=== PATIENT | male | born 1990 | race Caucasian/White ===

== ENCOUNTER 2018-01-12 03:06 | Emergency (ER) | payer BC, OTHER ==
[2018-01-12 04:35] VITALS: BP 135/77
--- NOTE | 2018-01-12 04:37 | ED ---
Romario Duque Rebecca, scribed for Alex Rodney MD on 01/12/18 at 0328 . Upper Extremity Pain - HPI Summary HPI Summary: Pt is a 27 y/o M who presents to ED c/o right shoulder and arm pain. While at work this morning, at approximately 0230, the pt felt his right shoulder "pop out then back in." Pain is located in the right shoulder and down the RUE. Took Advil at 0230 this morning. On triage, pain was moderate, ranked 7/10. Sx aggravated by movement, alleviated by nothing. Prior similar episode while in high school. 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 - History of Current Complaint Chief Complaint: EDShoulderClavicleInj Stated Complaint: RT SHOULDER INJURY Time Seen by Provider: 01/12/18 03:25 Hx Obtained From: Patient Onset/Duration: Started Hours Ago - ~1 hour, Still Present Severity Currently: Moderate - 7/10 Pain Location: Shoulder - Right, Arm - Right Aggravating Factor(s): Movement Alleviating Factor(s): Nothing Associated Signs & Symptoms: Positive: Negative Related History: Dominant Hand Right - Allergies/Home Medications Allergies/Adverse Reactions: Allergies Allergy/AdvReac Type Severity Reaction Status Date / Time No Known Allergies Allergy Verified 01/12/18 03:12 PMH/Surg Hx/FS Hx/Imm Hx Endocrine/Hematology History: Denies: Hx Diabetes, Hx Thyroid Disease Cardiovascular History: Denies: Hx Hypertension Respiratory History: Denies: Hx Asthma, Hx Chronic Obstructive Pulmonary Disease (COPD) GI History: Denies: Hx Ulcer - Surgical History Surgery Procedure, Year, and Place: HERNIA REPAIR. LEFT KNEE ARTHROSCOPY Infectious Disease History: No Infectious Disease History: Denies: Hx Hepatitis, Hx Human Immunodeficiency Virus (HIV), Hx of Known/ Suspected MRSA, Hx Shingles, Hx Tuberculosis, History Other Infectious Disease, Traveled Outside the [place] in Last 30 Days - Family History Known Family History: Positive: Cardiac Disease - Social History Alcohol Use: None Alcohol Amount: NONE SINCE AUGUST 2013 Substance Use Type: Reports: None Smoking Status (MU): Former Smoker Type: Smokeless Tobacco Amount Used/How Often: 1 TIN A WEEK Have You Smoked in the Last Year: No Review of Systems Negative: Fever Positive: Other - R shoulder and RUE pain All Other Systems Reviewed And Are Negative: Yes Physical Exam - Summary Physical Exam Summary: Appearance: Well appearing, no pain distress Skin: warm, dry, reflects adequate perfusion Head/face: normal Eyes: EOMI, SYDNIE ENT: normal Neck: supple, non-tender Respiratory: CTA, breath sounds present Cardiovascular: RRR, pulses symmetrical Musculoskeletal: strength/ROM intact, including FROM and intact sensation of the R shoulder, little subluxations anteriorly with movement Neuro: normal, sensory motor intact, A&Ox3 Triage Information Reviewed: Yes Vital Signs On Initial Exam: Initial Vitals Temp Pulse Resp BP Pulse Ox 98.2 F 77 16 138/73 100 01/12/18 03:10 01/12/18 03:10 01/12/18 03:10 01/12/18 03:10 01/12/18 03:10 Vital Signs Reviewed: Yes Diagnostics - Vital Signs Vital Signs Temp Pulse Resp BP Pulse Ox 01/12/18 03:10 98.2 F 77 16 138/73 100 - Laboratory Lab Statement: Any lab studies that have been ordered have been reviewed, and results considered in the medical decision making process. - Radiology shoulder XR Xray Interpretation: No Acute Changes Radiology Interpretation Completed By: ED Physician Course/Dx - Course Course Of Treatment: pt placed in a sling by az. Shoulder is located -- has some movements with subtle subluxation. ? old labrum injury. F/U ortho. - Diagnoses Differential Diagnosis/HQI/PQRI: Positive: Fracture (Closed), Strain, Sprain, Other - subluxation/dislocation; labrial injury Provider Diagnoses: Subluxation Discharge - Sign-Out/Discharge Documenting (check all that apply): Discharge/Admit/Transfer - Discharge - Discharge Plan Condition: Good Disposition: HOME Patient Education Materials: Shoulder Dislocation (ED) Forms: *Work Release Referrals: Sigrid Maravilla MD [Medical Doctor] - Additional Instructions: Ice, ibuprofen. Rest. Sling for next day. Return if worse, dislocation or other concerns. Call orthopedist for follow up. - Billing Disposition and Condition Condition: GOOD Disposition: HOME The documentation as recorded by the Romario ruiz Rebecca accurately reflects the service I personally performed and the decisions made by az, Alex Rodney MD.
--- NOTE | 2018-01-12 08:08 | RAD ---
HISTORY: Subluxation COMPARISONS: None VIEWS: 4, Frontal internal rotation, external rotation, outlet, and axillary views of the right shoulder FINDINGS: BONE DENSITY: Normal. BONES: There is no displaced fracture. JOINTS: There is no arthropathy. ALIGNMENT: There is no dislocation. SOFT TISSUES: Unremarkable. OTHER FINDINGS: None. IMPRESSION: NO ACUTE OSSEOUS INJURY. IF SYMPTOMS PERSIST, RECOMMEND REPEAT IMAGING.
== END 2018-01-12 04:30 | disposition home or self-care (01) ==
LOC: ED 03:06
DX: S43.001A Unspecified subluxation of right shoulder joint, initial encounter (principal); M25.511 Pain in right shoulder; M79.601 Pain in right arm; X58.XXXA Exposure to other specified factors, initial encounter; Y92.9 Unspecified place or not applicable
CPT/HCPCS: 99282